=== PATIENT | female | born 1980 | race Caucasian/White ===

== ENCOUNTER 2016-10-11 18:04 | Inpatient (IN) | payer MEDICAID ==
[~2016-10-11] VITALS: Ht 157.5 cm; Wt 68.9 kg
--- NOTE | ~2016-10-11 | PN ---
Unit #: [id number] #: [id number] Patient: DALLIN PHELPS [id number] [facility] [address] [place] [address] [id number] MR#: [id number] NAME: DALLIN PHELPS. ROOM: P202 Age: 36 Sex: F Admission Date: 10/11/2016 : 1980 Attending Physician: Russ Gunter M.D. Admitting Physician: Russ Gunter M.D. Primary Care Physician: Primary Care Physician Tabitha ABDALLA PROGRESS NOTES DATE 10/12/2016 DISCUSSION Ms. Roche is a 36-year-old female. Patient interviewed. Chart reviewed. Obtained information from nursing staff. Patient reported feeling sad, depressed, anxious, currently withdrawing from Xanax. Patient reported severe anxiety, agitation, mood lability. Complete review of system unremarkable. MENTAL STATUS EXAMINATION General appearance, patient dressed casually. Attention span, concentration fair. Oriented in time, place and person. Mood and affect sad, dysphoric, anxious. Speech rapid in rate. Thought process circumstantial. Patient denied any suicidal or homicidal ideation but mood lability. Recent and remote memory poor. Insight and judgement poor. DIAGNOSES 1. Sedative/hypnotic use disorder, severe. 2. Mood disorder NOS. ASSESSMENT/PLAN Advised to start patient on Celexa 20 mg daily and Zyprexa 5 mg at bedtime. If needed, consider further adjustment of medication. Patient has a p.r.n. Vistaril ordered t.i.d. p.r.n. If needed, consider further adjustment of medication. Dictated by... Maxi Sands/catrina TD: 10/12/2016 18:11 JOB #: [id number] Unit #: [id number] #: [id number] Patient: DALLIN PHELPS [facility] PROGRESS NOTES Page 1 of 1 X Russ Gunter MD PROGRESS NOTE
--- NOTE | ~2016-10-11 | HP ---
Unit #: [id number] #: [id number] Patient: DALLIN PHELPS [id number] [place] [address] [id number] MR#: [id number] NAME: DALLIN PHELPS. ROOM: P202 Age: 36 Sex: F Admission Date: 10/11/2016 : 1980 Attending Physician: Russ Gunter M.D. Admitting Physician: Russ Gunter M.D. Primary Care Physician: Primary Care Physician No HISTORY AND PHYSICAL HISTORY OF PRESENT ILLNESS The patient is a 36-year-old female admitted to [address] [place] [address] on 10/11/2016 to detox from Xanax. PAST MEDICAL HISTORY The patient denies. PAST SURGICAL HISTORY 1. Hernia x3. 2. Left knee x3. SOCIAL HISTORY She is unemployed and homeless. Smokes 1 pack of cigarettes daily and uses Xanax, 5 to 6 bars on a daily basis. FAMILY MEDICAL HISTORY Noncontributory. ALLERGIES Codeine. CURRENT MEDICATIONS The patient is not on any home medications. REVIEW OF SYSTEMS CONSTITUTIONAL: No fever or chills. HEENT: Denies any sore throat, ear pain or runny nose. CARDIOVASCULAR: Denies chest pain, irregular heart rhythm or palpitations. CHEST: Denies shortness of breath or cough. No hemoptysis. GASTROINTESTINAL: Denies nausea, vomiting, diarrhea or chronic constipation. ENDOCRINE: Denies history of increased thirst or urination. No recent significant weight loss or gain. GENITOURINARY: Denies dysuria, frequency, or hematuria. SKIN: Denies any rashes. HEMATOLOGIC: Denies history of increased bleeding or bruising. MUSCULOSKELETAL: Denies any hot, swollen joints. No generalized muscle pain. NEUROLOGIC: Denies problems with vision or speech. No frequent, severe headaches. No numbness, tingling or weakness in any extremities. Denies loss of bladder or bowel control. PHYSICAL EXAMINATION Unit #: [id number] #: [id number] Patient: DALLIN PHELPS GENERAL: She is awake, alert, and oriented in no acute distress. VITAL SIGNS: Temperature 97.4, heart rate 83, respirations 16, blood pressure 122/86. HEIGHT: 5 feet 2. WEIGHT: 152 pounds. SKIN: Warm and dry without rash or lesion. HEENT: Normocephalic. TMs not viewed. Oral and nasal passages clear. Conjunctivae clear. PERRLA. EOMs intact. NECK: Supple without lymphadenopathy or thyromegaly. HEART: Regular rate and rhythm without murmur. LUNGS: Clear. ABDOMEN: Soft, nontender. : Not done. EXTREMITIES: No evidence of cyanosis, clubbing or edema. Moves all without focal deficit. NEUROLOGICAL: Grossly within normal limits. Cranial Nerves: II: Visual sotelo are intact. III, IV AND : Extraocular movements are intact. Pupils are equal, round and reactive to light. V: Facial sensation is grossly normal. VII: Facial movements and expression are normal. VIII: Auditory acuity grossly intact. IX, X: Uvula is midline. Phonation is normal. XI: Patient shrugs shoulders and turns head normally. XII: Tongue protrudes in the midline. Sensory and Motor Function: Sensory and motor sensation is grossly normal. Motor: moves all extremities well. IMPRESSION 1. Psychiatric admission. 2. Nicotine dependence. 3. Xanax abuse. RECOMMENDATIONS PSYCHIATRIC: Per psychiatrist. MEDICAL: No contraindication to participate in this facility activities. MEDICAL PROGNOSIS Good. MEDICAL CONDITION Stable. Dictated by... Arlet Jara TD: 10/13/2016 09:26 JOB #: [id number] Unit #: [id number] #: [id number] Patient: DALLIN PHELPS HISTORY AND PHYSICAL Page 1 of 1 X MERVIN RAMIREZ APRN HISTORY AND PHYSICAL
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
--- NOTE | ~2016-10-11 | DS ---
Unit #: [id number] #: [id number] Patient: DALLIN PHELPS [id number] [facility] [address] [place] [address] [id number] MR#: [id number] NAME: DALLIN PHELPS. ROOM: P202 Age: 36 Sex: F Admission Date: 10/11/2016 : 1980 Discharge Date: 10/13/2016 Attending Physician: Russ Gunter M.D. Primary Care Physician: Tabitha Primary Care Physician DISCHARGE SUMMARY REASON FOR ADMISSION Detox from Xanax. DIAGNOSTIC STUDIES LABORATORY DATA: Urine drug screen positive for methadone and benzodiazepine. HOSPITAL COURSE Patient was admitted to inpatient unit on October 11 and discharged on 10/13/16. Patient was treated on the inpatient unit with chemical dependency group, (1) therapy, medication management, psychoeducation, psychotherapy, and structured milieu. Patient was cooperative with the treatment and showed improvement. Subsequently, the patient was discharged with a plan to follow up in outpatient program. DISCHARGE MEDICATIONS None. DISCHARGE DIAGNOSES PSYCHIATRIC 1. Sedative hypnotic use disorder, F13.20. 2. Bipolar mood disorder, recurrent, severe, depressed, F31.9. SECONDARY DIAGNOSIS: Deferred. MEDICAL DIAGNOSIS: None. STRESSORS: Psychosocial stressors. INSTRUCTIONS TO PATIENT Patient to follow up in outpatient clinic as per medical social worker. CONDITION AT DISCHARGE Patient pleasant and cooperative. Denied any psychotic symptoms or any suicidal ideation. PROGNOSIS Guarded. DIET AND ACTIVITY As tolerated. Unit #: [id number] #: [id number] Patient: DALLIN PHELPS Dictated by... Maxi Sands/miguel angel TD: 10/14/2016 14:10 JOB #: [id number] DISCHARGE SUMMARY Page 1 of 1 X Russ Gunter MD X DISCHARGE SUMMARY
[~2016-10-11 18:04] MED LIST: BACTRIM DS TABL1 TA1 PO; FLEXERIL PO; HYDROCODON-ACE1 EAC1 PO; LORTAB 5/500 TA1 TA1 PO; MEDROL PO; MOBIC PO; NO MEDICATIONS; PERCOCET5/325 PO; RELAFEN PO; VICODIN 5/500 T1 TAB PO; VICODIN PO; VOLTAREN75 MG PO
[2016-10-12 10:01] LABS: BASOPHIL% 0.4 % (0-2.5); EOSINOPHIL# 0.5 X10e3 (0-0.7); EOSINOPHIL% 4.8 % (0.0-7.0); HEMATOCRIT 46.1 % (35.0-45.0); LYMPHOCYTE# 2.9 X10e3 (1.0-3.5); LYMPHOCYTE% 26.7 % (17.0-45.0); MEAN CORPUSCULAR HEMOGLOBIN 30.8 PG (28-34); MEAN CORPUSCULAR HGB CONC 34.6 g/dL (30-36); MEAN PLATELET VOLUME 8.7 FL (6.5-11.5); MONOCYTE# 0.7 X10e3 (0-1.0); MONOCYTE% 6.4 % (3.0-12.0); NEUTROPHIL# 6.8 X10e3 (1.5-7.1); NEUTROPHIL% 61.7 % (40-75); PLATELET COUNT 346 X10e3 (140-420); RED BLOOD COUNT 5.18 X10e (3.90-5.30); RED CELL DISTRIBUTION WIDTH 12.9 % (11.0-15.5)
[2016-10-12 10:04] LABS: DIFF IND NO
[2016-10-12 10:12] LABS: ALBUMIN SERUM 4.8 g/dL (3.5-5.0); ALKALINE PHOSPHATASE 68 U/L (32-92); ALT (SGPT) 24 U/L (10-40); AST (SGOT) 33 U/L (10-42); BILIRUBIN,TOTAL 0.5 mg/dL (0.2-2.0); CALCIUM SERUM 10.2 mg/dL (8.4-10.2); CARBON DIOXIDE 28 mmol/L (22-31); CHLORIDE 103 mmol/L (100-111); CREATININE SERUM 0.8 mg/dL (0.6-1.4); GLOM FILT RATE Estimated 93.6 mL/min (>60); GLUCOSE FASTING 104 mg/dL (70-110); POTASSIUM 3.9 mmol/L (3.5-5.1); PROTEIN TOTAL SERUM 8.5 g/dL (6.0-8.3); SODIUM 138 mmol/L (135-145)
[2016-10-12 10:13] LABS: BLOOD UREA NITROGEN <5 mg/dL (9-23); BUN/CREATININE RATIO 6.25
[2016-10-12 12:47] LABS: URINE APPEARANCE CLEAR; URINE BILIRUBIN NEG (NEG); URINE BLOOD NEG (NEG); URINE COLOR YELLOW; URINE GLUCOSE NEG (NEG); URINE KETONE NEG (NEG); URINE LEUKOCYTE ESTERASE NEG (NEG); URINE NITRATE NEG (NEG); URINE PH 5.5 (5-8); URINE PROTEIN NEG (NEG); URINE SPECIFIC GRAVITY 1.011 (1.003-1.035); URINE UROBILINOGEN 0.2 MG/DL (NEG)
[2016-10-12 13:25] LABS: AMPHETAMINE NEG (NEG); BARBITURATES NEG (NEG); BENZODIAZEPINES POS (NEG); COCAINE NEG (NEG); MARIJUANA NEG (NEG); OPIATES NEG (NEG); TRICYCLIC ANTIDEPRESSANTS NEG (NEG); U METHADONE POS (NEG)
== END 2016-10-13 12:01 | DRG 897 ==
LOC: P2S 20:14
PROVIDERS: Psychiatry & Neurology Psychiatry
PROC: HZ2ZZZZ Detoxification Services for Substance Abuse Treatment (ICD-10-PCS; principal; 2016-10-11)
DX: F13.20 Sedative, hypnotic or anxiolytic dependence, uncomplicated (principal); F31.9 Bipolar disorder, unspecified
CPT/HCPCS: 80053; 80307; 81003; 85025; 86592